=== PATIENT | male | born 1950 | race Caucasian/White ===

== ENCOUNTER 2019-03-30 08:20 | Inpatient (IN) | payer OTHER, SELFPAY ==
[2019-03-30] VITALS (28 sets, daily range): BP systolic 110–150; BP diastolic 59–118; PULSE 83–106; RESP 16–28; TEMP 36.8–39.1; O2SAT 97–100; BMI 42.5
--- NOTE | ~2019-03-30 | XR_ITS ---
EXAMINATION: XR chest 2V DATE: 03/30/2019 09:11 INDICATION: Cough, fever and hemoptysis. TECHNIQUE: PA and lateral views of the chest were obtained. COMPARISON: Right rib radiographs dated 11/10/2014 FINDINGS: 7.2 x 5.7 x 8.8 cm masslike opacity with a few air bronchograms at the anterior left midlung zone. Li near discoid atelectasis/scarring in the more caudal lingula. No other airspace opacities, pulmonary edema, pleural effusion or pneumothorax. Calcified nodule at the right upper lung zone consistent wit h old granulomatous disease. The cardiomediastinal silhouette is normal. Mild thoracic spondylosis. O ld posterior right sixth rib fracture. IMPRESSION: 1. 7.2 x 5.7 x 8.8 cm left perihilar mass in the anterior midlung zone concerning for primary broncho genic carcinoma and/or pneumonia. Recommend further evaluation with contrast-enhanced chest CT. Reviewed, dictated and finalized at location A. OLE C[employer]ER MACHINE IMPRESSION: 1. 7.2 x 5.7 x 8.8 cm left perihilar mass in the anterior midlung zone concerni ng for primary bronchogenic carcinoma and/or pneumonia. Recommend further eval uation with contrast-enhanced chest CT.
--- NOTE | ~2019-03-30 | CT_ITS ---
EXAMINATION: CT brain wo con EXAM DATE: 03/30/2019 10:12 INDICATION: Syncope. TECHNIQUE: Spiral CT of the head was performed without contrast. Axial, coronal and sagittal images were reviewed. The dose-length product (DLP) for this examination was 605.33 mGy-cm. The exposure w as tailored according to patient size, and iterative reconstruction (ASIR) was used as additional dos e reduction technique. There is no prior study for comparison. FINDINGS: There is no acute intraparenchymal hemorrhage. No evidence of intraparenchymal brain mass lesion. No evidence of acute infarction. Please note that initial head CT has limited sensitivity f or small or acute infarctions. There is moderate prominence of the sulci and ventricles related to ce rebral atrophy. There is intracranial carotid arteriosclerosis. There are no extra-axial collectio ns. There is no mass effect or midline shift. The orbits are unremarkable. Soft tissue is unremark able. The visualized sinuses and mastoid air cells are well aerated. IMPRESSION: 1. No acute intracranial findings. 2. Chronic age related findings. Reviewed, dictated and finalized at location B. RA ASSEMBLER
--- NOTE | ~2019-03-30 | CT_ITS ---
EXAMINATION: CT chest w con DATE: 03/30/2019 10:11 INDICATION: lung mass,ABN CXR,SYNCOPE TECHNIQUE: Computed tomography (CT) of the chest was performed with 75 mL Omnipaque-350 intravenous c ontrast. Additional 3D reconstructions utilizing coronal maximum intensity projection (MIP) were perf ormed. Automated exposure control and iterative reconstruction technique were employed. The dose-kendra th product was 764.31 mGy-cm. COMPARISON: Radiograph dated 03/20/2019 FINDINGS: There is a 5.5 x 7.0 x 4.6 cm region of consolidation in the anterior segment of the right upper lobe . Air bronchograms and enhancing pulmonary arteries and veins extend through the region of consolidat ion with no evident architectural distortion to suggest underlying mass and this could be most consis tent with pneumonia. No evident focus of abnormal enhancement within the region of consolidation. Min imal dependent atelectasis in the bilateral lower lobes. No other pneumonia, suspicious pulmonary nod ules, pleural effusion or pneumothorax. Calcified right middle lobe nodule along with calcified right hilar and right paratracheal lymph nodes consistent with old granulomatous disease. No pathologicall y enlarged thoracic lymphadenopathy. Heart size is normal. No pericardial effusion. Very small slidin g-type hiatal hernia. Although not performed as a dedicated pulmonary embolism protocol no definite p ulmonary embolism identified. Thoracic aorta is normal in caliber with no dissection. A couple low-at tenuation likely renal cysts the largest measuring 1.6 cm. Several splenic calcination is consistent with old granulomatous disease. Mild thoracic spondylosis. IMPRESSION: 1. 5.5 x 7.0 x 4.6 cm region of consolidation without evident mass effect upon contrast opacified pul monary vessels and air bronchograms coursing through the region consistent with pneumonia. Reviewed, dictated and finalized at location A. CISE PLANNER IMPRESSION: 1. 5.5 x 7.0 x 4.6 cm region of consolidation without evident mass effect upon contrast opacified pulmonary vessels and air bronchograms coursing through the region consistent with pneumonia.
--- NOTE | 2019-03-30 08:39 | ED.GENADULT ---
HPI - General Adult General Chief complaint: Unspecified Stated complaint: MULTI C/O Time Seen by Provider: 03/30/19 08:24 Source: patient and RN notes reviewed Mode of arrival: ambulatory Limitations: no limitations History of Present Illness HPI narrative: Pt is a 68 y/o male who presents to the ED with c/o a fever which occurred last night. Pt states he has been taking Motrin and Tylenol on an empty stomach which he believes could be causing his symptoms. Pt reports generalized body aches, wheezing, epigastric ABD pain, hemopyosis, left ear pain, left ear discharge, hematuria, sinus congestion, and chills, but denies diaphoresis, chest pain, or chest pressure. Pt states he has difficulty hearing from his left ear. complaint: Fever Onset (ago): day(s) (last night) Radiation: non-radiation Associated symptoms: fever/chills and other (generalized body aches; wheezing; hemoptysis; epigastric ABD pain; left ear pain; left ear discharge; hematuria; sinus congestion) Related Data Allergies Allergy/AdvReac Type Severity Reaction Status Date / Time cephalexin Allergy Unknown Verified 02/14/19 11:08 ciprofloxacin Allergy Unknown Verified 02/14/19 11:08 codeine Allergy Unknown Unverified 04/26/18 15:07 Penicillins Allergy Unknown Verified 02/14/19 11:08 Sulfa (Sulfonamide Allergy Unknown Verified 04/26/18 15:07 Antibiotics) sulfamethizole Allergy Unknown Verified 02/14/19 11:08 tomato Allergy Unknown Verified 02/14/19 11:09 trimethoprim Allergy Unknown Verified 02/14/19 11:09 Review of Systems Review of Systems: All systems reviewed & are unremarkable except as noted in HPI and below Constitutional: Constitutional: Reports body ache(s) (generalized), Reports chills and Reports fever(s) ENT: Reports ear discharge (left ear), Reports sinus pressure (sinus congestion) and Reports other (left ear pain) Cardiovascular: Cardiovascular: Denies chest pain, Denies diaphoresis and Denies other (chest pressure) Respiratory: Respiratory: Reports hemoptysis and Reports wheezing Gastrointestinal: Gastrointestinal: Reports abdominal pain (epigastric) Genitourinary: Genitourinary: Reports hematuria PMFSH Past Medical History Medical History (Updated 03/30/19 @ 12:41 by José Miguel Yoder MD) Hypertension (Acute) Kidney stone (Acute) Family History Family History (Updated 01/03/14 @ 07:13 by DOCTOR UNKNOWN) Mother Cerebrovascular accident Father Family history of chronic obstructive pulmonary disease Social History Social History Smoking status: Never smoker Alcohol intake: never Gender identity (if verbalized by the patient): Male Comments PCP: Dr. Palencia Exam Narrative: Exam Narrative: GENERAL: Well-appearing, well-nourished, and in no acute distress. HEAD: Normocephalic, atraumatic. ENT: Mucous membranes moist. No pharyngeal erythema or tonsillar exudate. CHEST: Clear to auscultation. No respiratory distress. HEART: Tachycardic and regular. Normal peripheral pulses. ABDOMEN: Soft, nontender, nondistended. EXTREMITIES: Normal range of motion. No edema. SKIN: Warm, dry, no rash. NEURO: Alert and oriented x3. Course Course Emergency Course: Patient resting comfortably. Informed of results. Had a brief syncopal episode that lasted no more than 30 seconds and patient was immediately oriented x2 after regaining consciousness. He is oriented x3 shortly after that. He is been starting vancomycin due to allergies to penicillins and cephalosporins. We will go to I am you given syncope with sepsis. Consultations Consultation #1: Discussed case with hospitalist, Dr. Smith. Accepted pt for admission. Wants the pt in IMU. Date: 03/30/19 Time: 10:46 Vital Signs Vital signs: Vital Signs Temperature 98.6 F 03/30/19 08:32 Pulse Rate 102 H 03/30/19 08:32 Respiratory Rate 16 03/30/19 08:32 Blood Pressure 150/72 H 03/30/19 08:32 Pulse Oximetry 98 03/30/19 08:32 Temperature 98.6 F
[2019-03-30 09:27] LABS: Hematocrit 48.6 % (42.0-52.0); Mean Corpuscular HGB Conc 32.9 g/dl (32-36); Mean Corpuscular Hemoglobin 28.9 pg (26-34); Mean Corpuscular Volume 87.7 fl (80-100); Mean Platelet Volume 11.7 fl (7.4-10.4); Platelet Count Result 218 k/mm3 (150-375); Red Blood Count 5.54 M/mm3 (4.6-6.20); Red Cell Distribution Width 13.2 % (11.5-14.5); White Blood Count 28.8 K/mm3 (4.5-10.0)
[2019-03-30 09:29] LABS: Glucose Point of Care 113 (65-105)
[2019-03-30 09:30] LABS: Add Urine Microscopic? YES; Appearance Urine Cloudy (Clear); Bilirubin Urine Negative (Negative); Blood Urine Negative (Negative); Color Urine Amber (Yellow); Glucose Urine UA Negative (Negative); Ketones Urine Negative (Negative); Leukocyte Esterase Ur 1+ LEU/UL (Negative); Nitrate Urine Negative (Negative); Protein Urine 1+ mg/dL (Negative); RBC Urine 0-2 /hpf (0-2); Specific Grav Ur 1.028 (1.001-1.035); Urobilinogen Urine Negative mg/dL (<2.0); WBC Urine 0-3
[2019-03-30] MEDS: SODIUM CHLORIDE 0.9% IV 1,000 ML 999 ML IV CONT (09:31)
[2019-03-30 09:39] LABS: Band Neutrophils Percent 19 % (0-6); Lymphocytes Absolute Manual 2.01 K/mm3 (1.1-4.5); Metamyelocytes Percent 1 %; Monocytes Absolute Manual 0.86 K/mm3 (0.1-0.90); Monocytes Percent Manual 3 % (3-9); Neutrophils Absolute Manual 25.63 K/mm3 (1.3-6.7); Neutrophils Percent Manual 70 % (46-73); Platelet Estimate Adequate (Adequate); Stomatocytes 1+ (NORMAL); Total Cells Counted 100
[2019-03-30 09:40] LABS: Blood Urea Nitrogen 21 mg/dL (9-20); Calcium 8.9 mg/dL (8.4-10.2); Carbon Dioxide 24 mmol/L (22-30); Chloride 101 mmol/L (98-107); Estimated CRCL calculation 60 ml/min; Estimated Glomerular Filt Rate 50; Glucose 115 mg/dL (75-110); Potassium 3.8 mmol/L (3.4-5.0); Sodium 136 mmol/L (137-145)
[2019-03-30 10:35] LABS: Lactic Acid Reflex 2.3 mmol/L (0.7-2.1)
--- NOTE | 2019-03-30 10:59 | PC.NURSE ---
AT 0933 PT HAD SYNCOPAL EPISODE WHILE IN BED, RN WAS SUMMONED TO ROOM, PATIENT STATED THAT HE FELT LIKE HE WAS GOING TO PASS OUT. PATIENT BECOME SLOW TO RESPOND, AND WAS LAID DOWN, MD TO ROOM, PT STIMULATED AND PATIENT RETURNED TO BASELINE AFTER ABOUT 15 SECONDS. ALERT AND ORIENTED. IV INSERTED AND VS TAKEN AND FOUND TO BE STABLE. PT STATED THAT HE HAS NOT HAD ANYTHING TO EAT SINCE 7PM LAST NOC. CBG TAKEN.
[2019-03-30 13:22] LABS: Reflex Lactic Acid Yes or No Add Lactic
[2019-03-30] MEDS: ACETAMINOPHEN 325 MG TABLET 650 MG PO (13:23)
[2019-03-30] MEDS: SODIUM CHLORIDE 0.9% IV 1,000 ML 125 ML IV CONT ×2 (13:25→20:46)
--- NOTE | 2019-03-30 13:30 | PM.IMHP ---
H&P: HPI History of Present Illness Chief complaint: Pneumonia/Sepsis/Syncope Narrative: Taras Rodriguez is a 68 year old male who came to the emergency room with complaints of having a fever that started last night. The patient was taking Motrin and Tylenol on an empty stomach and started coughing up blood-streaked sputum. He also started having blood in his urine as well. He thought this was occurring because he was taking Motrin. He has some generalized body aches, wheezing an epigastric abdominal pain, left ear pain left ear discharge and sinus congestion. Patient had chills and diaphoresis. The patient had a brief period of syncope the lasted about 30 seconds to the emergency room. It was thought the patient's blood pressure probably dropped. CT of the brain showed nothing acute. CT of the chest was read as consolidation in the left lower to middle lung. A CT was performed because it was thought that patient possibly had a mass on the left lower lobe. No mass was seen on the CT scan just the consolidation concerning for pneumonia. Patient's white count was noted to be 28.8. Blood cultures are pending. The patient was started on vancomycin. He has multiple drug allergies. Noah was noted to be 1.40. Random glucose is 115. He has diet controlled diabetes and his hemoglobin A1c was noted to be 6.2. No blood was noted in his urinalysis. Patient is being admitted for syncopal episode and community-acquired pneumonia in the left lower lobe. Review of Systems Review of Systems: Narrative: The patient had blood streaks in his sputum with fever and chills and body aches. He also noted some blood in his urine as well. All systems reviewed & are unremarkable except as noted in HPI and below Constitutional: Constitutional: Reports as per HPI and Reports no additional constitutional complaints Eyes: Eyes: Reports as per HPI and Reports no additional eye complaints ENT: Reports hearing normal, Reports otalgia, Reports nasal congestion and Reports sinus pain Cardiovascular: Cardiovascular: Reports no additional cardiovascular complaints Respiratory: Respiratory: Reports no additional respiratory complaints, Reports no additional respiratory complaints and Reports cough (Blood streaking) Gastrointestinal: Gastrointestinal: Reports as per HPI and Reports other (GERD) Musculoskeletal: Musculoskeletal: Reports no additional musculoskeletal complaints Integumentary/Breasts: Skin/Breast: Reports system reviewed and no additional complaints, except as docu and Reports as per HPI Neurologic: Reports system reviewed and no additional complaints, except as documented, Reports as per HPI and Reports Normal hearing present Psychiatric: Psychiatric: Reports no additional psychiatric complaints and Reports as per HPI Endocrine: Endocrine: Reports no additional endocrine complaints Hematologic/Lymphatic: Hematologic/Lymphatic: Reports no additional hematologic/lymphatic complaints Allergic/Immunologic: Allergic/Immunologic: Reports no additional allergic/immunologic complaints [facility] Past Medical History Medical History (Updated 03/30/19 @ 13:54 by Bree Catherine NP) Suarez's palsy (Chronic) X2 Chronic GERD (Chronic) Diverticulosis (Chronic) Hypertension (Chronic) Kidney stone (Chronic) Seizures (Resolved) As a child Shingles (Resolved) Surgical History Surgical History (Updated 03/30/19 @ 13:54 by Bree Catherine NP) S/P trigger finger release (Resolved) Family History Family History Mother Cerebrovascular accident Father Family history of chronic obstructive pulmonary disease Sibling Cerebrovascular accident Sibling Cerebrovascular accident Sibling Cerebrovascular accident Sibling Cerebrovascular accident Sibling Cerebrovascular accident Sibling Cerebrovascular accident Sibling Cerebrovascular accident Sibling Cerebrovascular accident Sibling Cereb
[2019-03-30] MEDS: IPRATROPIUM BR 0.02% INH SOLN 0.5 MG/2.5 ML VIAL INHALATION (21:05)
[2019-03-31] VITALS (18 sets, daily range): BP systolic 110–153; BP diastolic 50–82; PULSE 74–98; RESP 16–28; TEMP 37.1–37.4; O2SAT 96–98
[2019-03-31] MEDS: IPRATROPIUM BR 0.02% INH SOLN 0.5 MG/2.5 ML VIAL INHALATION ×2 (01:18→10:14)
[2019-03-31] MEDS: SODIUM CHLORIDE 0.9% IV 1,000 ML 125 ML IV CONT ×2 (04:10→14:14)
[2019-03-31 04:47] LABS: Alanine Aminotransferase 17 U/L (4-50); Alkaline Phosphatase 68 U/L (38-126); Aspartate Amino Transferase 17 U/L (17-59); Bilirubin,Total 0.5 mg/dL (0.2-1.3); Blood Urea Nitrogen 29 mg/dL (9-20); Calcium 8.1 mg/dL (8.4-10.2); Carbon Dioxide 26 mmol/L (22-30); Chloride 104 mmol/L (98-107); Estimated CRCL calculation 74 ml/min; Estimated Glomerular Filt Rate > 60; Glucose 98 mg/dL (75-110); Magnesium 1.7 mg/dL (1.6-2.3); Potassium 3.4 mmol/L (3.4-5.0); Sodium 137 mmol/L (137-145)
[2019-03-31 06:33] LABS: Hematocrit 38.1 % (42.0-52.0); Hemoglobin 12.7 g/dL (14.0-18.0); Mean Corpuscular HGB Conc 33.3 g/dl (32-36); Mean Corpuscular Hemoglobin 29.2 pg (26-34); Mean Corpuscular Volume 87.6 fl (80-100); Mean Platelet Volume 11.6 fl (7.4-10.4); Platelet Count Result 183 k/mm3 (150-375); Red Blood Count 4.35 M/mm3 (4.6-6.20); Red Cell Distribution Width 13.3 % (11.5-14.5); White Blood Count 23.7 K/mm3 (4.5-10.0)
[2019-03-31 07:46] LABS: Band Neutrophils Percent 5 % (0-6); Monocytes Absolute Manual 1.18 K/mm3 (0.1-0.90); Monocytes Percent Manual 5 % (3-9); Neutrophils Percent Manual 79 % (46-73); Total Cells Counted 100
[2019-03-31 07:47] LABS: Platelet Estimate Adequate (Adequate)
[2019-03-31] MEDS: PANTOPRAZOLE 40 MG TABLET PO (09:02)
--- NOTE | 2019-03-31 16:58 | PM.IMPN ---
Progress Note: A&P Assessment and Plan (1) Pneumonia: Qualifiers: Laterality: left Lung location: unspecified part of lung Pneumonia type: due to unspecified organism Qualified Code(s): J18.9 - Pneumonia, unspecified organism Code(s): J18.9 - Pneumonia, unspecified organism Status: Acute Assessment and Plan: Continue with vancomycin. The patient has multiple drug allergies. Continue to monitor his white count. WCC coming down slowly still very high, continue iv vancomycin. will consult Dr Skelton pulmology due to size and nature of 7.2 x 5.7 x 8.8 cm left perihilar mass. ? bronchogenic cancer (2) Hypertension: Code(s): I10 - Essential (primary) hypertension Status: Chronic Assessment and Plan: Patient has a syncopal episode and was thought that maybe his blood pressure dropped. BP has corrected now (3) Chronic GERD: Code(s): K21.9 - Gastro-esophageal reflux disease without esophagitis Status: Chronic Assessment and Plan: Continue with his home medications. (4) Syncope: Qualifiers: Syncope type: unspecified Qualified Code(s): R55 - Syncope and collapse Code(s): R55 - Syncope and collapse Status: Acute Assessment and Plan: Bp corrected (5) Sepsis: Qualifiers: Sepsis acute organ dysfunction status: unspecified Sepsis type: sepsis due to unspecified organism Qualified Code(s): A41.9 - Sepsis, unspecified organism Code(s): A41.9 - Sepsis, unspecified organism Status: Acute Assessment and Plan: Secondary to pneumonia, continue Iv vancomycin, can stop fluids as BP has corrected Subjective Interval history: Jennifer is a 68 year old male who came to the emergency room with complaints of having a fever that started last night. The patient was taking Motrin and Tylenol on an empty stomach and started coughing up blood-streaked sputum. He also started having blood in his urine as well. He thought this was occurring because he was taking Motrin. Pt urine is clear, pt CXR shows 7.2 x 5.7 x 8.8 cm left perihilar mass in the anterior midlung zone concerning for primary bronchogenic carcinoma and/or pneumonia, long discussion with patient, pt states he does not smoke but has lost 24 lbs intentional with diet. Review of Systems Review of Systems: All systems reviewed & are unremarkable except as noted in HPI and below Cardiovascular: Cardiovascular: Reports no additional cardiovascular complaints Respiratory: Respiratory: Reports no additional respiratory complaints, Reports no additional respiratory complaints and Reports cough (Blood streaking) Gastrointestinal: Gastrointestinal: Reports as per HPI and Reports other (GERD) Exam Const: General: cooperative, healthy appearing, comfortable, no acute distress, well developed, awake and active Nutritional Appearance: average body habitus and well nourished Orientation/consciousness: oriented to person, oriented to place, oriented to time and oriented x3 Limitations: no limitations Chest: Chest palpation & inspection: normal inspection of the chest Resp: Effort & Inspection: normal respiratory effort Auscultation: wheezes (Bilateral) Percussion: percussion normal Cardio: Palpation: normal PMI Rate: regular rate Rhythm: regular rhythm Heart sounds: S1 normal and S2 normal Peripheral pulses: pulses 2+ throughout Skin: General skin exam: normal color Lesions: no lesions Rashes: no rashes Trauma: no lacerations or abrasions Wounds: no wounds Hair: normal Nails: normal Neuro: General: oriented to person, oriented to place, oriented to time and oriented x3 Cranial nerves: Yes PERRL and Yes hearing normal Cognition (Neuro): normal cognition Speech: normal speech Gait exam (Neuro): normal gait Motor exam (neuro): strength 5/5 throughout Sensory Exam: normal sensation Extrem: General: normal to inspection Right upper extremity: normal to i
[2019-03-31] MEDS: ACETAMINOPHEN 325 MG TABLET 650 MG PO (22:58)
[2019-04-01] VITALS (18 sets, daily range): BP systolic 133–185; BP diastolic 72–98; PULSE 70–97; RESP 16–20; TEMP 36.2–37.2; O2SAT 93–98
[2019-04-01] MEDS: IPRATROPIUM BR 0.02% INH SOLN 0.5 MG/2.5 ML VIAL INHALATION (09:39)
[2019-04-01] MEDS: hydroCHLOROthiazide 25 MG TABLET BY MOUTH (12:33)
[2019-04-01] MEDS: AMLODIPINE BESYLATE 5 MG TABLET PO (15:17)
--- NOTE | 2019-04-01 15:23 | PM.IMPN ---
Progress Note: A&P Assessment and Plan (1) Pneumonia: Qualifiers: Laterality: left Lung location: unspecified part of lung Pneumonia type: due to unspecified organism Qualified Code(s): J18.9 - Pneumonia, unspecified organism Code(s): J18.9 - Pneumonia, unspecified organism Status: Acute Assessment and Plan: Continue with vancomycin. The patient has multiple drug allergies. Continue to monitor his white count. WCC coming down well, continue iv vancomycin. will consult Dr Skelton pulmology due to size and nature of 7.2 x 5.7 x 8.8 cm left perihilar mass. ? bronchogenic cancer (2) Hypertension: Code(s): I10 - Essential (primary) hypertension Status: Chronic Assessment and Plan: Patient has a syncopal episode and was thought that maybe his blood pressure dropped. BP has corrected now, restart home Bp medications (3) Chronic GERD: Code(s): K21.9 - Gastro-esophageal reflux disease without esophagitis Status: Chronic Assessment and Plan: Continue with his home medications. (4) Syncope: Qualifiers: Syncope type: unspecified Qualified Code(s): R55 - Syncope and collapse Code(s): R55 - Syncope and collapse Status: Acute Assessment and Plan: Bp corrected (5) Sepsis: Qualifiers: Sepsis acute organ dysfunction status: unspecified Sepsis type: sepsis due to unspecified organism Qualified Code(s): A41.9 - Sepsis, unspecified organism Code(s): A41.9 - Sepsis, unspecified organism Status: Acute Assessment and Plan: Secondary to pneumonia, continue Iv vancomycin, can stop fluids as BP has corrected Subjective Interval history: Jennifer is a 68 year old male who came to the emergency room with complaints of having a fever that started last night. The patient was taking Motrin and Tylenol on an empty stomach and started coughing up blood-streaked sputum. He also started having blood in his urine as well. He thought this was occurring because he was taking Motrin. Pt urine is clear, pt CXR shows 7.2 x 5.7 x 8.8 cm left perihilar mass in the anterior midlung zone concerning for primary bronchogenic carcinoma and/or pneumonia, long discussion with patient, pt states he does not smoke but has lost 24 lbs intentional with diet. Pt denies cough today or any hemoptysis Review of Systems Constitutional: Constitutional: Reports as per HPI and Reports no additional constitutional complaints Cardiovascular: Cardiovascular: Reports no additional cardiovascular complaints Respiratory: Respiratory: Reports no additional respiratory complaints Gastrointestinal: Gastrointestinal: Reports as per HPI and Reports other (GERD) Musculoskeletal: Musculoskeletal: Reports no additional musculoskeletal complaints Exam Const: General: cooperative, healthy appearing, comfortable, no acute distress, well developed, awake and active Nutritional Appearance: average body habitus and well nourished Orientation/consciousness: oriented to person, oriented to place, oriented to time and oriented x3 Limitations: no limitations Neck: Neck: normal visual inspection, full ROM, no lymphadenopathy, trachea midline and supple Thyroid: thyroid normal Carotids: normal carotid upstroke Lymphatic: no lymphadenopathy noted Chest: Chest palpation & inspection: normal inspection of the chest Resp: Effort & Inspection: normal respiratory effort Auscultation: wheezes (Bilateral) and breath sounds absent Percussion: percussion normal Cardio: Palpation: normal PMI Rate: regular rate Rhythm: regular rhythm Heart sounds: S1 normal and S2 normal Peripheral pulses: pulses 2+ throughout : General: Yes no CVA tenderness Back/Spine/Pelvis: Back: no CVA tenderness Cervical Spine: cervical ROM normal Thoracic/Lumbar Spine: thoracic and lumbar spine normal to inspection Pelvis: no pain with anterior-posterior compression Neuro: General: orien
[2019-04-01 16:51] LABS: Vancomycin Trough 7.5 ug/mL (10.0-20.0)
--- NOTE | 2019-04-01 17:02 | PM.PNPUL ---
Progress Note: A&P Assessment and Plan (1) Pneumonia: Qualifiers: Laterality: left Lung location: unspecified part of lung Pneumonia type: due to unspecified organism Qualified Code(s): J18.9 - Pneumonia, unspecified organism Code(s): J18.9 - Pneumonia, unspecified organism Status: Acute (2) Suspected sleep apnea: Code(s): R29.818 - Other symptoms and signs involving the nervous system Status: Acute Subjective Interval history: Please see dictation # [id number]. This is a 68-year-old man lifelong nonsmoker who developed fever with chills on March 28. He was of feeling poorly, had a temperature to 102.6 and drainage from his left ear. Later that night he coughed with the mild amount of blood and past very dark urine. He suspected there was blood in the urine. He was taking Motrin and Tylenol on an empty stomach. He also had some bleeding from the nostril and he thinks that possibly coughing blood was coming from his nose. He had sinus congestion mainly on the left side of his face. 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 He was told this years ago. In the emergency department he had a brief episode of syncope, lasted 30 seconds. This was attributed to sepsis with drop in blood pressure. A CT of the brain showed nothing significant. A Chest x-ray showed consolidation in the left lower to mid lung field. Chest CT showed 5.5 x 7.0 x 4.6 cm region of consolidation without evident mass effect upon contrast opacified pulmonary vessels and air bronchograms coursing through the region consistent with pneumonia. His white blood cell count was elevated at 28 K. Objective Data Vital Signs Vital Signs: Vital Signs - 24 hr 03/31/19 18:00 03/31/19 20:00 03/31/19 20:28 Temperature 37.1 C Pulse Rate 90 92 96 Respiratory Rate 20 Blood Pressure 148/80 H 150/76 H Pulse Oximetry 98 03/31/19 20:29 03/31/19 22:13 04/01/19 00:00 Temperature Pulse Rate 97 83 78 Respiratory Rate Blood Pressure 153/79 H Pulse Oximetry 04/01/19 00:53 04/01/19 02:00 04/01/19 04:00 Temperature 36.4 C 36.2 C L Pulse Rate 79 70 75 Respiratory Rate 20 16 Blood Pressure 139/76 133/72 Pulse Oximetry 96 96 04/01/19 06:00 04/01/19 08:00 04/01/19 09:17 Temperature 36.6 C 37.1 C Pulse Rate 76 77 83 Respiratory Rate 16 20 Blood Pressure 185/95 H 156/85 H Pulse Oximetry 98 97 04/01/19 09:41 04/01/19 09:57 04/01/19 10:00 Temperature Pulse Rate 84 84 Respiratory Rate 20 Blood Pressure 168/83 H Pulse Oximetry 04/01/19 12:00 04/01/19 14:00 04/01/19 16:00 Temperature 36.8 C Pulse Rate 77 79 79 Respiratory Rate 20 Blood Pressure 143/90 H Pulse Oximetry 98 Intake/Output Intake/Output: Intake & Output 03/29/19 03/30/19 03/31/19 04/01/19 23:59 23:59 23:59 23:59 Intake Total 3340 4823 1079 Output Total 350 1675 2925 Balance 2990 8375 -5744 Meds/Results Medications: Active Medications Generic Name Dose Route Start Last Admin Trade Name Freq PRN Reason Stop Dose Admin Acetaminophen 650 mg 03/30/19 10:57 03/31/19 22:58 Tylenol Tablet PO 650 mg Q4H PRN Administration Mild Pain (1-3) or Fever Hydrocodone Bitart/Acetaminophen 1 tab 03/30/19 10:57 [place] 5-325 Mg PO Q4H PRN Pain Rated 4-6 Amlodipine Besylate 5 mg 04/01/19 14:59 04/01/19 15:17 Norvasc PO 5 mg DAILY@1459 RUBEN Administration Hydrochlorothiazide 25 mg 04/01/19 12:00 04/01/19 12:33 Hydrochlorothiazide BY MOUTH 25 mg NOON RUBEN Administration Vancomycin HCl 1,750 mg in 500 mls @ 250 mls/hr 03/31/19 05:00 04/01/19 00:45 Vancomycin 1,750 Mg/D5w 500 Ml IVPB Infused Q18H RUBEN Infusion Ipratropium [place] 0.5 mg 03/31/19 14:58 04/01/19 09:39 Atrovent Neb INHALATION 0.5 mg Q6HRT PRN Administration Shortness Of Breath Or Wheezing Levalbutero
[2019-04-01] MEDS: POTASSIUM CHLORIDE 20 MEQ TABLET.ER PO (18:06)
--- NOTE | 2019-04-01 20:20 | PHAR ---
VANCO TROUGH LEVEL = 7.5 TARGET 10-15. SCHEDULE CHANGEG FROM Q18HR TO Q12HR. WILL RECHECK LEVEL 0500 04/03.
[2019-04-01] MEDS: LISINOPRIL 20 MG TABLET 40 MG PO (20:52)
--- NOTE | 2019-04-01 21:04 | CONS_ITS ---
DATE OF CONSULTATION: 04/01/2019 REASON FOR THE CONSULTATION: Dr. Pereira consulted me to see this patient for a left-sided pneumonia. HISTORY: This is a 68-year-old man, lifelong nonsmoker, who developed on March 28 fever with chills, temperature up to 102.6 with overall feeling weak and tired. He took Motrin and Tylenol on an empty stomach. Following this, he coughed up blood streaked sputum. His urine was very concentrated and he thought this may have been due to blood in the urine as well. He has had a lifelong problem with sinuses on the left side. He states he has had poorly developed sinus cavities with frequent sinus infections on the left. He states he may have been having blood come from that nostril. He was also having left ear pain. He was having generalized body aches. He presented to the emergency department and while he was there had a brief episode of syncope lasting about 30 seconds. This was attributed to low blood pressure. Chest x-ray showed a left-sided infiltrate. Chest CT showed a 5.5 x 7 x 4.6 cm region of consolidation without mass effect. The blood vessels were opacified. He had air bronchograms through the region and this was consistent with pneumonia. His white blood cell count was elevated at 28,000. He was treated for sepsis with pneumonia. His white blood cell count has improved and is now down to 23.7 K. Blood cultures are negative. A sputum culture showed normal oral casper. Lactic acid was elevated at 2.3. He feels much improved. I interviewed him with his , son, daughter and son-in-law at the bedside. He currently is not having a productive cough. He had a viral infection about 4 or 5 weeks ago, had intermittent wheezing. He saw his primary care doctor at that time. He has no prior history of asthma or other airway disease. He grew up in a home where his father smoked. His nine brothers and sisters were all smokers. Several of them developed emphysema and strokes. He has not had any cardiac or pulmonary problems. ALLERGIES: CEPHALEXIN, CIPRO, CODEINE, PENICILLIN, SULFA, SULFAMETHOXAZOLE, TOMATOES, AND TRIMETHOPRIM. MEDICATIONS: Home medications include: 1. Verapamil 240 mg nightly. 2. Potassium chloride 20 mEq daily. 3. Omeprazole 20 mg a day. 4. Lisinopril 40 mg a day. 5. Hydrochlorothiazide 25 mg a day. 6. Amlodipine 5 mg a day. PAST MEDICAL HISTORY: 1. Hypertension since 1987. 2. 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 He can't remember having a seizure, but has been on disability for this since 1971. 3. History of a kidney stone. 4. Shingles. 5. Diverticulosis. 6. 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 7. Chronic gastroesophageal reflux disease. PAST SURGICAL HISTORY: Trigger finger release. SOCIAL HISTORY: . He has grown children. Never smoked tobacco. He has been disabled since 1971, however, has been able to work at a [employer] in a nearby town. 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 He has not traveled in the band for the last 3 or more years. FAMILY HISTORY: Father from emphysema, was also a transmitter chief and exposure to paint worsened his emphysema. Mother in 1992 from a stroke. His siblings have had strokes and COPD. He is the ninth out of ten children. He does not know anything about the health of his grandparents. REVIEW OF SYSTEMS: He has lost 24 pounds over the last 3-4 months by cutting sugar out of his diet. He was recently diagnosed with diabetes and did not want to take oral medications, so he has been actively losing weight and controlling his carbohydrate intake. He has never had chest pain. He has not had any more hemoptysis since admission. He does not wheeze at home. He has occasional
[2019-04-02] VITALS (8 sets, daily range): BP systolic 129–174; BP diastolic 82–84; PULSE 60–80; RESP 16–17; TEMP 36.7–36.8; O2SAT 96–99
[2019-04-02 05:06] LABS: Hemoglobin 13.6 g/dL (14.0-18.0); Mean Corpuscular Hemoglobin 29.4 pg (26-34); Mean Corpuscular Volume 86.4 fl (80-100); Mean Platelet Volume 11.8 fl (7.4-10.4); Platelet Count Result 218 k/mm3 (150-375); Red Blood Count 4.63 M/mm3 (4.6-6.20); Red Cell Distribution Width 13.2 % (11.5-14.5); White Blood Count 9.2 K/mm3 (4.5-10.0)
[2019-04-02 05:22] LABS: Blood Urea Nitrogen 15 mg/dL (9-20); Calcium 8.5 mg/dL (8.4-10.2); Carbon Dioxide 28 mmol/L (22-30); Chloride 103 mmol/L (98-107); Estimated CRCL calculation 100 ml/min; Estimated Glomerular Filt Rate > 60; Glucose 104 mg/dL (75-110); Potassium 3.3 mmol/L (3.4-5.0); Sodium 139 mmol/L (137-145)
[2019-04-02] MEDS: SALINE 0.65% NAS SOLN 44 ML BTL 1 SPRAY NASAL (06:19)
[2019-04-02] MEDS: VERAPAMIL HCL ER 240 MG TABLET.ER PO (09:09)
[2019-04-02] MEDS: hydroCHLOROthiazide 25 MG TABLET BY MOUTH (12:55)
[2019-04-02] MEDS: AMLODIPINE BESYLATE 5 MG TABLET PO (15:17)
--- NOTE | 2019-05-15 17:43 | PM.DS ---
DS: Diagnosis Admitting Diagnosis Admitting Diagnosis: Pneumonia, unspecified organism Discharge Diagnosis (1) Pneumonia: Qualifiers: Laterality: right Lung location: unspecified part of lung Pneumonia type: due to unspecified organism Qualified Code(s): J18.9 - Pneumonia, unspecified organism Code(s): J18.9 - Pneumonia, unspecified organism Status: Acute Assessment and Plan: Continue with vancomycin. The patient has multiple drug allergies. Continue to monitor his white count. WCC coming down well, continue iv vancomycin. will consult Dr Skelton pulmology due to size and nature of 7.2 x 5.7 x 8.8 cm left perihilar mass. ? bronchogenic cancer (2) Hypertension: Code(s): I10 - Essential (primary) hypertension Status: Chronic Assessment and Plan: Patient has a syncopal episode and was thought that maybe his blood pressure dropped. BP has corrected now, restart home Bp medications (3) Chronic GERD: Code(s): K21.9 - Gastro-esophageal reflux disease without esophagitis Status: Chronic Assessment and Plan: Continue with his home medications. (4) Syncope: Qualifiers: Syncope type: unspecified Qualified Code(s): R55 - Syncope and collapse Code(s): R55 - Syncope and collapse Status: Acute Assessment and Plan: Bp corrected (5) Sepsis: Qualifiers: Sepsis acute organ dysfunction status: unspecified Sepsis type: sepsis due to unspecified organism Qualified Code(s): A41.9 - Sepsis, unspecified organism Code(s): A41.9 - Sepsis, unspecified organism Status: Acute Assessment and Plan: Secondary to pneumonia, continue Iv vancomycin, can stop fluids as BP has corrected DS: Summary Hospital Course Reason for hospitalization: Taras Rodriguez is a 68 year old male who came to the emergency room with complaints of having a fever that started last night. The patient was taking Motrin and Tylenol on an empty stomach and started coughing up blood-streaked sputum. He also started having blood in his urine as well. He thought this was occurring because he was taking Motrin. He has some generalized body aches, wheezing an epigastric abdominal pain, left ear pain left ear discharge and sinus congestion. Patient had chills and diaphoresis. The patient had a brief period of syncope the lasted about 30 seconds to the emergency room. It was thought the patient's blood pressure probably dropped. CT of the brain showed nothing acute. CT of the chest was read as consolidation in the left lower to middle lung. A CT was performed because it was thought that patient possibly had a mass on the left lower lobe. No mass was seen on the CT scan just the consolidation concerning for pneumonia. Patient's white count was noted to be 28.8. Blood cultures are pending. The patient was started on vancomycin. He has multiple drug allergies. Noah was noted to be 1.40. Random glucose is 115. He has diet controlled diabetes and his hemoglobin A1c was noted to be 6.2. No blood was noted in his urinalysis. Patient is being admitted for syncopal episode and community-acquired pneumonia in the left lower lobe. Hospital Course: Continue with vancomycin. The patient has multiple drug allergies. Continue to monitor his white count. WCC coming down well, continue iv vancomycin. will consult Dr Skelton pulmology due to size and nature of 7.2 x 5.7 x 8.8 cm left perihilar mass. ? bronchogenic cancer, Patient was seen by Dr. Skelton did not suspect cancer rather pneumonia as patient's clinicall symptoms have improved he does not have any signs or symptoms of malignancy, however he will need repeat chest x-ray to reevaluate in 3 months. will dishcarge home today, Status at Discharge Cognitive/behavioral status at discharge: patient is back to his baseline Functional status at discharge: independent ambulation Time Spent with Patient Time attestation
== END 2019-04-02 16:49 | disposition home or self-care (01) | DRG 720 ==
LOC: ANHED 10:58 → ANHIMU 12:03
PROVIDERS: Family Medicine; Nurse Practitioner; Admitting Provider Hospitalist; Emergency Provider Emergency Medicine; PCP Internal Medicine; Visit Provider Family Medicine
DX: A41.9 Sepsis, unspecified organism (principal); J18.9 Pneumonia, unspecified organism; E11.9 Type 2 diabetes mellitus without complications; I10 Essential (primary) hypertension; K21.9 Gastro-esophageal reflux disease without esophagitis; Z87.442 Personal history of urinary calculi; K57.90 Diverticulosis of intestine, part unspecified, without perforation or abscess without bleeding; R04.2 Hemoptysis; Z77.22 Contact with and (suspected) exposure to environmental tobacco smoke (acute) (chronic)
CPT/HCPCS: 36415; 70450; 71046; 71260; 80048; 80053; 80202; 81001; 83605; 83735; 85025; 85027; 87040; 87185; 87205; 87804; 94640; 94667; 96361; 96365; 96366; 99285; A9270; G0378; G0379; J3370; J7030; Q9967

== ENCOUNTER 2019-06-09 09:27 | Outpatient (CLI) | payer OTHER, SELFPAY ==
--- NOTE | ~2019-06-09 | XR_ITS ---
EXAMINATION: XR chest 2V 06/09/2019 09:54 INDICATION: Pneumonia. PROCEDURE: 2 view chest COMPARISON: 04/12/2019 FINDINGS: The lungs are clear. The cardiomediastinal silhouette is within normal limits. There are no pleural effusions. There is no pneumothorax suspected. No evidence for residual left perihilar p neumonia. The lungs are hyperinflated which is consistent with, but not diagnostic of chronic obstruc tive pulmonary disease. IMPRESSION: 1: NO ACUTE CARDIOPULMONARY DISEASE. Reviewed, dictated and finalized at location [facility]. 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
[2019-06-09 09:53] LABS: Add Urine Microscopic? NO; Appearance Urine Clear (Clear); Bilirubin Urine Negative (Negative); Blood Urine Negative (Negative); Color Urine Yellow (Yellow); Glucose Urine UA Negative (Negative); Ketones Urine Negative (Negative); Leukocyte Esterase Ur Negative LEU/UL (Negative); Nitrate Urine Negative (Negative); Protein Urine Negative (Negative); Specific Grav Ur 1.013 (1.001-1.035); Urobilinogen Urine Negative mg/dL (<2.0)
== END 2019-06-09 09:28 | disposition home or self-care (01) ==
PROVIDERS: PCP Internal Medicine; Visit Provider Internal Medicine
DX: R30.0 Dysuria (principal); J18.9 Pneumonia, unspecified organism
CPT/HCPCS: 71046; 81003

== ENCOUNTER → 2021-04-07 03:09 | Outpatient (CLI) | payer OTHER, SELFPAY ==
[2021-04-07 13:19] LABS: Influenza Control Positive
[2021-04-07 20:05] LABS: SARS-CoV-2 RNA PCR Negative
== END ==
PROVIDERS: PCP Internal Medicine; Visit Provider Internal Medicine
DX: R09.89 Other specified symptoms and signs involving the circulatory and respiratory systems (principal); Z20.822 Contact with and (suspected) exposure to COVID-19
CPT/HCPCS: 87804; C9803; U0003; U0005

== ENCOUNTER → 2021-05-08 00:12 | Outpatient (CLI) | payer OTHER, SELFPAY ==
[2021-05-09 16:52] LABS: SARS-CoV-2 RNA PCR Negative
== END ==
PROVIDERS: PCP Internal Medicine; Visit Provider Internal Medicine Gastroenterology
DX: Z01.812 Encounter for preprocedural laboratory examination (principal); Z20.822 Contact with and (suspected) exposure to COVID-19
CPT/HCPCS: C9803; U0003; U0005

== ENCOUNTER 2021-05-12 15:50 | Emergency (ER) | payer OTHER, SELFPAY ==
--- NOTE | ~2021-05-12 | CT_ITS ---
EXAMINATION: CT brain wo con DATE: 05/13/2021 01:36 INDICATION: Syncope TECHNIQUE: Computed tomography (CT) of the head was performed without intravenous contrast. The mA wa s adjusted according to patient size. Iterative reconstruction technique was employed. Exam dose: 60 5.33 mGy-cm total exam DLP. COMPARISON: 03/30/2019 CT brain FINDINGS: Left vertebral artery, basilar artery and bilateral carotid siphon internal carotid artery calcifications. There is nonspecific mild diminished attenuation of the cerebral white matter, likely due to chronic small vessel ischemic changes. No intracranial mass lesion or hemorrhage or cerebrovascular accident is evident. No midline shift or mass effect effect. Normal ventricular size. No subdural or epidural hematoma. No fracture or bone destruction of the cranial vault. Included paranasal sinuses and mastoid air cell s are unremarkable. IMPRESSION: Cerebral atherosclerosis and chronic small vessel ischemic changes of the cerebral white matter No acute intracranial finding Reviewed, dictated and finalized at [facility]. Reviewed, dictated and finalized at location [facility]. 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
[2021-05-12 16:08] VITALS: BP 131/79; PULSE 86; RESP 18; TEMP 36.1; O2SAT 100
--- NOTE | 2021-05-12 16:13 | ECG_ITS ---
Measurements Intervals [place] Rate: 81 P: 52 KS: 152 QRS: 50 QRSD: 97 T: 58 QT: 405 QTc: 471 Interpretive Statements SINUS RHYTHM BASELINE ARTIFACT- I, III, AVL NORMAL ECG Electronically Signed On 05-12-2021 20:15:56 HALL TENDER by Real Melendez D.O.
[2021-05-12 18:13] VITALS: BP 132/79; PULSE 86; RESP 19; O2SAT 100
[2021-05-12 18:32] LABS: Basophils Absolute Auto 0.1 K/mm3 (0.0-0.1); Basophils Percent Auto 0.6 % (0.2-1.2); Eosinophils Percent Auto 0.2 % (0-4.4); Hematocrit 35.2 % (42.0-52.0); Hemoglobin 10.9 g/dL (14.0-18.0); Immature Granulocyte Absolute 0.05 K/mm3 (0.00-0.031); Immature Granulocyte Percent A 0.4 % (0-0.5); Lymphocytes Absolute Auto 0.89 K/mm3 (0.9-3.2); Lymphocytes Percent Auto 7.4 % (18.3-44.2); Mean Corpuscular Hemoglobin 23.2 pg (26-34); Mean Corpuscular Volume 74.9 fl (80-100); Mean Platelet Volume 9.9 fl (7.4-10.4); Monocytes Absolute Auto 0.9 K/mm3 (0.1-0.6); Monocytes Percent Auto 7.5 % (2.6-8.5); Neutrophils Absolute Auto 10.1 K/mm3 (1.3-6.7); Neutrophils Percent Auto 83.9 % (45.5-73.1); Platelet Count Result 494 k/mm3 (150-375); Red Cell Distribution Width 15.8 % (11.5-14.5); White Blood Count 12.1 K/mm3 (4.5-10.0)
[2021-05-12 18:47] LABS: Alanine Aminotransferase 12 U/L (4-50); Albumin Level 3.9 g/dL (3.5-5.1); Alkaline Phosphatase 119 U/L (38-126); Anion Gap 8 mmol/L (8-16); Aspartate Amino Transferase 24 U/L (17-59); Bilirubin,Total 0.5 mg/dL (0.2-1.3); Blood Urea Nitrogen 17 mg/dL (9-20); Calcium 9.1 mg/dL (8.4-10.2); Carbon Dioxide 28 mmol/L (22-30); Chloride 100 mmol/L (98-107); Estimated CRCL calculation 71 ml/min; Estimated Glomerular Filt Rate > 60; Glucose 130 mg/dL (65-110); Potassium 3.4 mmol/L (3.4-5.0); Sodium 136 mmol/L (137-145)
[2021-05-12 21:20] VITALS: BP 118/74; PULSE 78; RESP 18; O2SAT 100
--- NOTE | 2021-05-12 23:10 | ED.SYNCOPE ---
HPI - Syncope General Chief Complaint: Syncope Stated Complaint: syncope in restroom Time Seen by Provider: 05/12/21 23:09 Source: patient Mode of arrival: wheelchair Limitations: no limitations History of Present Illness HPI narrative: Patient is a 70-year-old male complaining of a syncopal episode after having a large bowel movement right after taking his bowel prep for his colonoscopy tomorrow. Patient states that after taking his bowel prep he started to have lower abdominal cramping, had a very large bowel movement and passed out. Patient now states that he is feeling better and has no symptoms at this time. Patient denies any dizziness, headache, speech or visual disturbance, focal weakness or numbness, chest pain, shortness of breath, abdominal pain, nausea, vomiting, fever or chills. Related Data Home Medications Medication Instructions Recorded Confirmed cetirizine 10 mg capsule 10 mg PO DAILY PRN 02/09/21 04/23/21 polyethylene glycol 3350 17 17 g PO DAILY PRN 02/09/21 04/23/21 gram/dose oral powder Tylenol 500 mg PO BID PRN 04/23/21 04/23/21 loratadine [Claritin] 10 mg PO DAILY PRN 04/23/21 04/23/21 omeprazole 20 mg PO DAILY PRN 04/23/21 04/23/21 Allergies Allergy/AdvReac Type Severity Reaction Status Date / Time doxycycline Allergy Severe Hives Verified 05/12/21 16:12 cephalexin Allergy Unknown Hives Verified 05/12/21 16:12 ciprofloxacin Allergy Unknown Hives Verified 05/12/21 16:12 codeine Allergy Unknown Hives Verified 05/12/21 16:12 Penicillins Allergy Unknown Hives Verified 05/12/21 16:12 Sulfa (Sulfonamide Allergy Unknown Hives Verified 05/12/21 16:12 Antibiotics) sulfamethizole Allergy Unknown Hives Verified 05/12/21 16:12 tomato Allergy Unknown Hives Verified 05/12/21 16:12 trimethoprim Allergy Unknown Hives Verified 05/12/21 16:12 Review of Systems Review of Systems: All systems reviewed & are unremarkable except as noted in HPI and below Constitutional: Constitutional: Denies body ache(s), Denies chills, Denies excessive sweating, Denies fatigue, Denies fever(s), Denies headache(s), Denies lethargy, Denies malaise, Denies weakness and Denies weight loss Eyes: Eyes: Denies blurry vision, Denies change in vision and Denies loss of vision ENT: Denies dizziness, Denies ear discharge, Denies headache(s), Denies lip swelling, Denies epistaxis, Denies nasal congestion, Denies neck pain, Denies throat swelling and Denies tongue swelling Cardiovascular: Cardiovascular: Denies chest pain, Denies chest pain at rest, Denies chest pain with activity, Denies diaphoresis, Denies rapid heart rate, Denies edema, Denies irregular heart rhythm, Denies lightheadedness, Denies palpitations, Denies dyspnea and Denies dyspnea on exertion Respiratory: Respiratory: Denies chest congestion, Denies cough, Denies hemoptysis, Denies dyspnea and Denies dyspnea on exertion Gastrointestinal: Gastrointestinal: Denies abdominal pain, Denies melena, Denies hematochezia, Denies diarrhea, Denies nausea, Denies vomiting and Denies hematemesis Musculoskeletal: Musculoskeletal: Denies abnormal gait, Denies deformity, Denies joint swelling, Denies limited range of motion, Denies neck pain and Denies numbness Neurologic: Denies Abnormal speech present, Denies abnormal gait, Denies confusion, Denies dizziness, Denies headache(s), Denies focal weakness, Denies loss of vision, Denies numbness, Denies Other visual disturbances, Denies Sensory deficit (Neuro) and Denies weakness Psychiatric: Psychiatric: Denies confusion, Denies depression, Denies auditory hallucinations, Denies homicidal ideation and Denies suicidal ideation Endocrine: Endocrine: Denies cold intolerance, Denies excessive sweating, Denies fatigue, Denies heat intolerance and Denies palpitations Hematologic/Lymphatic: Hematologic/Lymphatic: Denies easy bleeding and Denies easy bruising Allergic/Immunologic: Allergic/Immunologic: Denies lip swelling, Denies throat swelling and Denie
[2021-05-12 23:13] VITALS: BP 161/89; PULSE 75; RESP 15; O2SAT 98
[2021-05-12] MEDS: LACTATED RINGERS 1,000 ML 999 ML IV CONT (23:24)
[2021-05-12 23:27] VITALS: TEMP 37
[2021-05-13 00:25] VITALS: BP 155/83; PULSE 71; RESP 18; O2SAT 98
[2021-05-13 01:06] VITALS: BP 145/73; PULSE 75; RESP 15; O2SAT 97
[2021-05-13 02:11] VITALS: BP 140/81; PULSE 76; RESP 20; O2SAT 97
== END 2021-05-13 02:12 | disposition home or self-care (01) ==
PROVIDERS: Emergency Medicine; Emergency Provider Emergency Medicine; PCP Internal Medicine
DX: R55 Syncope and collapse (principal); K21.9 Gastro-esophageal reflux disease without esophagitis; Z87.442 Personal history of urinary calculi
CPT/HCPCS: 36415; 70450; 80053; 85025; 93005; 96360; 99284; J7120

== ENCOUNTER → 2021-05-16 00:30 | Outpatient (CLI) | payer OTHER, SELFPAY ==
[2021-05-16 22:40] LABS: SARS-CoV-2 RNA PCR Negative
== END ==
PROVIDERS: PCP Internal Medicine; Visit Provider Internal Medicine Gastroenterology
DX: Z01.812 Encounter for preprocedural laboratory examination (principal); Z20.822 Contact with and (suspected) exposure to COVID-19
CPT/HCPCS: C9803; U0003; U0005

== ENCOUNTER 2021-05-20 01:12 | Day surgery (SDC) | payer OTHER, SELFPAY ==
[2021-04-23 12:22] VITALS: BMI 33.2
--- NOTE | 2021-05-12 12:33 | PC.NURSE ---
PT EXPRESSED CONCERN THAT HE NEEDS HIS HERE TO ASSIST HIM WITH GETTING READY SINCE HE HAD COVID 03/2019 SEPSIS/SEVERE PN HE HAS LUNG ISSUES AND BECOMES VERY SOB WITH EXERTION. 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 THEY HAVE AN ADULT SON THAT DOES NOT LEAVE THE HOUSE EITHER AND DOES HOME COLLEGE AND WORKS FROM HOME.
--- NOTE | 2021-05-19 13:45 | PM.HPGS ---
History of Present Illness History of Present Illness Consent: Risks, benefits, and alternatives have been discussed and questions answered. Patient agrees to proceed with procedure. Chief complaint: melena Narrative: Taras Rodriguez is a 70 year old male Who has been found to have iron deficiency anemia. His last hemoglobin was 35 with a low MCV. Serum iron level was 26 with only 6% saturation. Ferritin was low at 6. he sees blood in his stools almost every day. He recalls that a while back he had a fiery burning sensation in the rectum and 2 weeks later passed a significant amount of blood. He states that he tries to have a bowel movement every day, admits to straining, but only has a bowel movement every 3 days or so. He admits that he eats a diet that is low in fiber. Usually he has eggs or biscuits & gravy for breakfast Review of Systems Review of Systems: All systems reviewed & are unremarkable except as noted in HPI and below PMFSH Past Medical History Medical History Suarez's palsy X2 Chronic GERD Diverticulosis Hypertension Kidney stone Seizures As a child Shingles Surgical History Surgical History S/P trigger finger release Family History Family History Mother Cerebrovascular accident Father Family history of chronic obstructive pulmonary disease Sibling Pneumonia Sibling Lupus (systemic lupus erythematosus) Sibling Cerebrovascular accident Sibling Colon cancer Sibling Aneurysm Sibling Cerebrovascular accident Sibling Chronic obstructive pulmonary disease Sibling Chronic obstructive pulmonary disease Sibling Diabetes mellitus Chronic obstructive pulmonary disease Hypertension Social History Social History Social History: The patient denies ever smoking or drinking. Patient gets disability. 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 He has 3 children. His greg is his durable power business attorney. He is listed as a full code. Smoking status: Never smoker Second hand tobacco smoke exposure: No Alcohol intake: never Substance use: never Living arrangements: with family Gender identity (if verbalized by the patient): Male Spiritual care concerns: No Agree to blood products: Yes Meds Home Medications and Allergies Home Medications Medication Instructions Recorded Confirmed Type epinephrine 0.3 mg/0.3 mL 0.3 mg IM ONCE #1 each 04/12/19 04/23/21 Rx injection, auto-injector fluticasone propionate 50 See Rx Instructions .ROUTE 09/03/20 04/23/21 Rx mcg/actuation nasal .COMPLEX #48 g spray,suspension cetirizine 10 mg capsule 10 mg PO DAILY PRN 02/09/21 04/23/21 History hydrocortisone 2.5 % topical cream 1 applic RECTAL QHS PRN #30 g 02/09/21 04/23/21 Rx with perineal applicator polyethylene glycol 3350 17 17 g PO DAILY PRN 02/09/21 04/23/21 History gram/dose oral powder ferrous sulfate 325 mg (65 mg 325 mg PO DAILY #30 tablet 02/13/21 05/20/21 Rx iron) tablet hydrochlorothiazide 25 mg tablet See Rx Instructions .ROUTE 03/04/21 04/23/21 Rx .COMPLEX #90 tablet amlodipine 5 mg tablet See Rx Instructions .ROUTE 03/27/21 04/23/21 Rx .COMPLEX #90 tablet verapamil 240 mg tablet,extended 240 mg PO DAILY #90 tablet 04/01/21 04/23/21 Rx release Tylenol 500 mg PO BID PRN 04/23/21 04/23/21 History loratadine [Claritin] 10 mg PO DAILY PRN 04/23/21 04/23/21 History omeprazole 20 mg PO DAILY PRN 04/23/21 04/23/21 History potassium chloride 20 mEq See Rx Instructions .ROUTE 04/27/21 Rx tablet,extended release(part/cryst) .COMPLEX #90 tablet azithromycin 250 mg tablet See Rx Instructions PO .COMPLEX #6 04/29/21 Rx tablet lisinopril 40 mg tablet See Rx Instructions .ROUTE 04/29/21 Rx .COMPLEX #90 tablet Allergies Allergy/A
[2021-05-20] MEDS: LACTATED RINGERS 1,000 ML 150 ML IV CONT (08:37)
[2021-05-20 08:40] VITALS: BP 136/86; PULSE 99; RESP 20; TEMP 36.5; O2SAT 99
--- NOTE | 2021-05-20 09:05 | WPDANESEPPF ---
Anes - Initial Pre Proc Eval Procedure: Operation Date: 05/20/21 09:30 Proposed Procedures p Colonoscopy - Escobar Wen MD Date/Time: 05/20/21 09:06 Surgeon: Escobar Wen MD Pre Op Diagnosis: melena Patient Data Age: 70 Gender: M Height: 1.78 m Weight: 103.9 kg Last Vital Signs Temp 97.7 F 05/20/21 08:40 Pulse 99 05/20/21 08:40 Resp 20 05/20/21 08:40 BP 136/86 05/20/21 08:40 Pulse Ox 99 05/20/21 08:40 Allergies Allergy/AdvReac Type Severity Reaction Status Date / Time doxycycline Allergy Severe Hives Verified 05/12/21 16:12 cephalexin Allergy Unknown Hives Verified 05/12/21 16:12 ciprofloxacin Allergy Unknown Hives Verified 05/12/21 16:12 codeine Allergy Unknown Hives Verified 05/12/21 16:12 Penicillins Allergy Unknown Hives Verified 05/12/21 16:12 Sulfa (Sulfonamide Allergy Unknown Hives Verified 05/12/21 16:12 Antibiotics) sulfamethizole Allergy Unknown Hives Verified 05/12/21 16:12 tomato Allergy Unknown Hives Verified 05/12/21 16:12 trimethoprim Allergy Unknown Hives Verified 05/12/21 16:12 Home Medications Medication Instructions Recorded Confirmed Type epinephrine 0.3 mg/0.3 mL 0.3 mg IM ONCE #1 each 04/12/19 04/23/21 Rx injection, auto-injector fluticasone propionate 50 See Rx Instructions .ROUTE 09/03/20 04/23/21 Rx mcg/actuation nasal .COMPLEX #48 g spray,suspension cetirizine 10 mg capsule 10 mg PO DAILY PRN 02/09/21 04/23/21 History hydrocortisone 2.5 % topical cream 1 applic RECTAL QHS PRN #30 g 02/09/21 04/23/21 Rx with perineal applicator polyethylene glycol 3350 17 17 g PO DAILY PRN 02/09/21 04/23/21 History gram/dose oral powder ferrous sulfate 325 mg (65 mg 325 mg PO DAILY #30 tablet 02/13/21 05/20/21 Rx iron) tablet hydrochlorothiazide 25 mg tablet See Rx Instructions .ROUTE 03/04/21 04/23/21 Rx .COMPLEX #90 tablet amlodipine 5 mg tablet See Rx Instructions .ROUTE 03/27/21 04/23/21 Rx .COMPLEX #90 tablet verapamil 240 mg tablet,extended 240 mg PO DAILY #90 tablet 04/01/21 04/23/21 Rx release Tylenol 500 mg PO BID PRN 04/23/21 04/23/21 History loratadine [Claritin] 10 mg PO DAILY PRN 04/23/21 04/23/21 History omeprazole 20 mg PO DAILY PRN 04/23/21 04/23/21 History potassium chloride 20 mEq See Rx Instructions .ROUTE 04/27/21 Rx tablet,extended release(part/cryst) .COMPLEX #90 tablet azithromycin 250 mg tablet See Rx Instructions PO .COMPLEX #6 04/29/21 Rx tablet lisinopril 40 mg tablet See Rx Instructions .ROUTE 04/29/21 Rx .COMPLEX #90 tablet Patient hx anesthesia problems: none Family hx anesthesia problems: none Results Review: All pre-operative results and documents have been reviewed as part of the pre-operative evaluation. [facility] Past Medical History Medical History (Updated 05/19/21 @ 13:46 by Escobar Wen MD) Suarez's palsy X2 Chronic GERD Diverticulosis Hypertension Kidney stone Seizures As a child Shingles Surgical History Surgical History S/P trigger finger release Family History Family History Mother Cerebrovascular accident Father Family history of chronic obstructive pulmonary disease Sibling Pneumonia Sibling Lupus (systemic lupus erythematosus) Sibling Cerebrovascular accident Sibling Colon cancer Sibling Aneurysm Sibling Cerebrovascular accident Sibling Chronic obstructive pulmonary disease Sibling Chronic obstructive pulmonary disease Sibling Diabetes mellitus Chronic obstructive pulmonary disease Hypertension Social History Social History Social History: The patient denies ever smoking or drinking. Patient gets disability. 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 He has 3 children. His greg is his durable power attorney lawyer. He is listed as a full code. Smoking status: Never smo
[2021-05-20 09:36] VITALS: BP 108/66; PULSE 82; RESP 24; O2SAT 98
[2021-05-20 09:46] VITALS: BP 125/75; PULSE 80; RESP 16; O2SAT 99
[2021-05-20 09:56] VITALS: BP 145/87; PULSE 75; RESP 19; O2SAT 100
== END 2021-05-20 10:20 | disposition home or self-care (01) ==
PROVIDERS: PCP Internal Medicine; Visit Provider Internal Medicine Gastroenterology
PROC: 0DJD8ZZ Inspection of Lower Intestinal Tract, Via Natural or Artificial Opening Endoscopic (ICD-10-PCS; CPT 45378; principal; 2021-05-20 09:30)
DX: C20 Malignant neoplasm of rectum (principal); D50.9 Iron deficiency anemia, unspecified; K92.1 Melena; K57.30 Diverticulosis of large intestine without perforation or abscess without bleeding; D12.2 Benign neoplasm of ascending colon; I10 Essential (primary) hypertension; K21.9 Gastro-esophageal reflux disease without esophagitis; E66.9 Obesity, unspecified; Z68.32 Body mass index [BMI] 32.0-32.9, adult
CPT/HCPCS: 45385; 45380; 88305; J2704; J7120

== ENCOUNTER 2021-05-26 12:25 | Outpatient (CLI) | payer OTHER, SELFPAY ==
--- NOTE | ~2021-05-26 | CT_ITS ---
EXAMINATION: CT abdomen pelvis w con DATE: 05/26/2021 13:15 INDICATION: Neoplasm of the digestive system TECHNIQUE: Computed tomography (CT) of the abdomen and pelvis was performed with 100 cc Omnipaque 350 intravenous contrast. Automated exposure control and iterative reconstruction technique were employe d. Exam dose: 1185.14 mGy-cm total exam DLP. COMPARISON: 04/26/2018 CT abdomen pelvis FINDINGS: There is very prominent soft tissue thickening of the rectum extending into the rectosigmoi d junction, with evidence of corresponding luminal stenosis. The mass measures up to 8 cm length by 6 cm transverse and 7.6 cm anteroposterior dimension. There is a centrally necrotic appearing contiguo us left perirectal mass measuring up to 3.4 cm transverse, 5.9 cm vertical and 6.9 cm anteroposterior dimension, which is likely direct extension of tumor and/or metastatic lymphadenopathy. There is sof t tissue tumor extension into the perirectal and susy rectosigmoid fat and multiple up to 11 mm lymph nodes around the rectosigmoid area, likely metastatic. There are multiple ill-defined hypoattenuating masses on the left and right hepatic lobes, measuring up to 2.3 cm maximal dimension, consistent with hepatic metastases. There are a couple of approximately 2 cm hepatic cysts. The gallbladder is unremarkable. No bile duct or pancreatic duct dilatation. No pancreatic mass lesio n or calcification. Normal splenic size. There are multiple calcified splenic granulomas. Chronic stable approximately 1.8 cm right adrenal mass, not changed since 04/26/2018. Normal left adr enal gland. Several very small right renal cysts. No urinary tract calculus or hydroureteronephrosis. There is atherosclerotic calcification of the abdominal aorta but no aneurysm. There is diverticulosis of the left and to a lesser extent right colon; no CT evidence of diverticuli tis is noted. No evidence of bowel obstruction or intraperitoneal free air. There is prostate enlargement and calcifications. There is moderate diffuse thickening of the urinary bladder wall likely due to bladder obstruction from the prostate enlargement. Fat-containing inguinal hernias, more prominent on the left. The lung bases are clear. Heart size is normal. No pericardial or pleural effusion. Small sliding hiatal hernia. Multilevel degenerative disc disease of the lumbar spine. Probable hemangioma situated in the posteri or aspect of the L3 vertebral body. 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, with left rectosigmoid direct met astatic extension and/or metastatic adenopathy, probable invasive perirectal and rectosigmoid fat ext ension and scattered up to 13 mm adjacent probable perirectal and perisigmoid metastatic lymph nodes Hepatic metastases Stable right adrenal mass, likely an adenoma 2 approximately 2 cm hepatic cysts and several very small right renal cyst Diverticulosis of the left and right colon; no CT evidence of diverticulitis Prostate enlargement and calcifications and associated moderate diffuse bladder wall thickening Fat-containing inguinal hernias, more prominent on the left Reviewed, dictated and finalized at [facility] Reviewed, dictated and finalized at [facility] 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
== END 2021-05-26 12:26 | disposition home or self-care (01) ==
LOC: ANHIMG 12:30
PROVIDERS: PCP Internal Medicine; Visit Provider Internal Medicine Gastroenterology
DX: C26.9 Malignant neoplasm of ill-defined sites within the digestive system (principal); K57.30 Diverticulosis of large intestine without perforation or abscess without bleeding; K40.90 Unilateral inguinal hernia, without obstruction or gangrene, not specified as recurrent
CPT/HCPCS: 74177; Q9967

== ENCOUNTER 2022-04-19 14:39 | Outpatient (CLI) | payer MEDICARE, MEDICAID, SELFPAY ==
--- NOTE | 2022-04-22 12:34 | WPDHOLTEREM ---
Holter/Event Monitor Holter/Event Monitor Date of procedure: 04/19/22 Holter/Event Procedure: 48 Hr Holter Monitor Indications: Bradycardia Conclusion: 1. 48 hour holter monitor on 04/19/22. 2. Predominant rhythm is sinus rhythm. HR range 47-136 bpm; average HR 76 bpm. 3. There are 2,492 premature supraventricular complexes, 675 supraventricular couplets, 36,091 supraventricular bigeminy and 6 supraventricular trigeminy. There are 9 episodes of atrial tachycardia, fastest at 167 bpm and longest lasting 15 beats. 4. There are 99 premature ventricular complexes and 1 ventricular couplet. No ventricular tachycardia. 5. No sinoatrial or atrioventricular blocks. No significant pauses greater than 2 seconds. 6. No symptoms available for correlation.
== END 2022-04-19 14:40 | disposition home or self-care (01) ==
PROVIDERS: PCP Internal Medicine; Visit Provider Internal Medicine
DX: R00.1 Bradycardia, unspecified (principal)
CPT/HCPCS: 93225; 93226